=== PATIENT | female | born 1985 | race Caucasian/White ===

== ENCOUNTER 2017-01-07 00:29 | Inpatient (IN) | payer BC ==
[~2017-01-07] VITALS: Ht 172.7 cm; Wt 87.1 kg
[~2017-01-07 00:29] MED LIST: CALC-5 PO; VITACAP26 PO
[2017-01-07] MEDS ORDERED: LACTATED RINGER'S 1000ML 1,000 ML IV PRN (01:01)
--- NOTE | 2017-01-07 01:25 | Progress Note ---
Progress Note Date of Service Jan 07, 2017. Progress Note Admit Note 31 F P0000 at 40.3 weeks admitted in active labor. GBS is negative. Cervix 8/ 100/-2/vertex. Will admit in active labor.
[2017-01-07 01:49] VITALS: Ht 172.7 cm; Wt 87.1 kg
[2017-01-07 02:12] LABS: HEMATOCRIT 33.3 % (37-47); MEAN CELL VOLUME 95.4 fL (80-100); MEAN CORPUSCULAR HEMOGLOBIN 33.8 pg (25-34); MEAN CORPUSCULAR HGB CONC 35.4 g/dl (32-36); MEAN PLATELET VOLUME 12.9 fL (7.4-10.4); PLATELET COUNT 112 K/uL (130-400); RED BLOOD COUNT 3.49 M/uL (4.2-5.4); WHITE BLOOD COUNT 13.96 K/uL (4.8-10.8)
[2017-01-07 02:14] LABS: PLT ESTIMATE NORMAL
[2017-01-07] MEDS ORDERED: CHOL100010 (02:24)
[2017-01-07] MEDS ORDERED: BUPIVACAINE 0.25% 30 ML VIAL ONE (03:21)
[2017-01-07] MEDS ORDERED: EpHEDrine SULFATE INJ 50 MG/ML AMP ONE (03:21)
[2017-01-07] MEDS ORDERED: FENTANYL CITRATE INJ 50 MCG/1 ML 2 ML VIAL ONE (03:22)
[2017-01-07] MEDS ORDERED: FENTANYL 2MCG/ML ROPIV 1.25MG/ML 100ML BAG EPI ONE (03:22)
[2017-01-07] MEDS: LACTATED RINGER'S 1000ML 1,000 ML IV SCH ×2 (03:52→10:19)
[2017-01-07] MEDS ORDERED: LACTATED RINGER'S 1000ML 500 ML IV PRN ×2 (04:09→06:02)
[2017-01-07] MEDS ORDERED: NALOXONE HCL INJ 1 MG in SODIUM CHLORIDE 0.9% 1000ML 1,000 ML IV PRN (04:09)
[2017-01-07] MEDS ORDERED: FENTANYL 2MCG/ML ROPIV 1.25MG/ML 100ML BAG EPI PRN (04:15)
[2017-01-07] MEDS ORDERED: NALOXONE HCL INJ 0.4 MG/1 ML VIAL/CARP IV PRN (04:15)
[2017-01-07] MEDS ORDERED: NALBUPHINE HCL INJ 10 MG/ML AMP IV PRN (04:15)
[2017-01-07] MEDS ORDERED: EpHEDrine SULFATE INJ 50 MG/ML AMP IV PRN (04:15)
[2017-01-07] MEDS ORDERED: ONDANSETRON INJ 2 MG/ML 2 ML VIAL IV PRN (04:15)
[2017-01-07] MEDS ORDERED: DiphenhydrAMINE HCL 50 MG/ML VIAL IV PRN (04:15)
[2017-01-07] MEDS ORDERED: OXYTOCIN 30 UNITS/500ML NSS IV PRN ×2 (06:15→12:30)
[2017-01-07] MEDS ORDERED: ACETAMINOPHEN/CODEINE 300/30MG TAB PO PRN ×2 (12:30)
[2017-01-07] MEDS ORDERED: ACETAMINOPHEN 325 MG TAB PO PRN (12:30)
[2017-01-07] MEDS ORDERED: LANOLIN OINT EXT PRN ×2 (12:30)
[2017-01-07] MEDS ORDERED: BENZOCAINE 20% AER SPR 82.5 GM CAN EXT PRN (12:30)
[2017-01-07] MEDS ORDERED: HYDROCORTISONE ACETATE 25 MG SUPP PR PRN (12:30)
[2017-01-07] MEDS ORDERED: SUPERCREAM 0.870 % 15GM JAR EXT PRN (12:30)
[2017-01-07] MEDS ORDERED: OXYCODONE/ACETAMINOPHEN 5-325 TAB PO PRN (12:30)
--- NOTE | 2017-01-07 12:39 | Progress Note ---
Progress Note Date of Service Jan 07, 2017. Progress Note Delivery note Patient delivered a live female right compound presentation. was delivered and was thick meconium which was known prior to delivery. 's cord was clamped and cut and infant delivered to the waiting pediatric team. Placenta was spontaneously delivered. Inspection of the placenta showed meconium -stained placenta. Placenta sent to pathology for analysis Infant's weight is pending was 5/8. Pediatric team was present at delivery. Inspection at the perineum showed a right sulcus tear as well as a midline laceration which was repaired with 2-0 Vicryl in layers. Inspection of the repair showed good hemostasis. Rectal exam post repair showed good sphincter tone. No sutures were palpated in the rectum. Estimated blood loss is 500 mL All instruments are removed from the vagina and accounted for 2 including sponges needles and retractors. Baby and mother are doing well and stable to recovery.
--- NOTE | 2017-01-07 13:48 | Anesthesia Procedure Note ---
Anesthesia Epidural Removal Nt Date & Time Jan 07, 2017 at 13:47 Vital Signs Pain Intensity: 0.0 Notes Mental Status: alert / awake / arousable, participated in evaluation Nausea / Vomiting: adequately controlled Pain: adequately controlled Airway Patency, RR, SpO2: stable & adequate BP & HR: stable & adequate Hydration State: stable & adequate Neuraxial Anesthesia: was administered Anesthetic Complications: no major complications apparent, pt satisfied with anesthetic care Epidural: removed without complications, with tip intact
[2017-01-07 15:15] VITALS: BP 114/70; PULSE 68; TEMP 36.8
[2017-01-07] MEDS: IBUPROFEN 600 MG TAB PO PRN ×2 (16:55→22:11)
[2017-01-07] MEDS: DOCUSATE SODIUM 100 MG CAP PO SCH (20:00)
[2017-01-07 20:15] VITALS: BP 114/73; PULSE 82; TEMP 36.9
[2017-01-08 00:15] VITALS: BP 107/71; PULSE 76; TEMP 36.6
[2017-01-08 04:50] VITALS: BP 102/73; PULSE 79; TEMP 36.5
--- NOTE | 2017-01-08 07:33 | OB/GYN Progress Note ---
[employer] Progress Note Date of Service: Jan 08, 2017. Patient is seen and examined. She feels well, no complaints. Ambulating without dizziness Voiding without difficulty Tolerating regular diet with out N&V Bleeding is minimal No fever/ chills/ CP/ SOB/ N&V/ Leg pain Breast feeding without problems Date Time Temp Pulse Resp B/P (MAP) Pulse Ox O2 Delivery O2 Flow Rate FiO2 01/08/17 04:50 36.5 79 16 102/73 01/08/17 00:15 36.6 76 18 107/71 01/08/17 00:15 Room Air 01/07/17 20:15 Room Air 01/07/17 20:15 36.9 82 16 114/73 01/07/17 16:03 Room Air 01/07/17 15:15 36.8 68 16 114/70 PE: General: Alert, orientedx3, NAD Abd: soft, NT, fundus firm, below Umbilicus Perineum intact, Lochia rubra minimal Ext; NT, no edema AP: 31 yo s/p , ppd# 1 VSS Afebrile doing well Continue routine care All questions were answered D/C home tomorrow
[2017-01-08 07:42] LABS: HEMATOCRIT 31.5 % (37-47)
[2017-01-08] MEDS: DOCUSATE SODIUM 100 MG CAP PO SCH ×2 (07:53→19:36)
[2017-01-08] MEDS: FERROUS SULFATE 325 MG TAB PO SCH (07:53)
[2017-01-08] MEDS: PRENATAL VITAMIN TAB PO SCH (07:53)
[2017-01-08] MEDS: IBUPROFEN 600 MG TAB PO PRN ×3 (07:54→19:35)
[2017-01-08 08:00] VITALS: BP 103/69; PULSE 79; TEMP 36.3
[2017-01-08 12:00] VITALS: BP 106/76; PULSE 69; TEMP 36.3
[2017-01-08 16:20] VITALS: BP 117/79; PULSE 76; TEMP 36.8
[2017-01-08] MEDS ORDERED: BISACODYL 5 MG TABEC PO SCH (20:00)
[2017-01-08 23:30] VITALS: BP 117/80; PULSE 73; TEMP 36.6
[2017-01-09] MEDS ORDERED: BISACODYL 10 MG SUPP PR PRN (07:00)
[2017-01-09 07:21] LABS: HEMATOCRIT 31.1 % (37-47); MEAN CELL VOLUME 97.5 fL (80-100); MEAN CORPUSCULAR HEMOGLOBIN 32.3 pg (25-34); MEAN CORPUSCULAR HGB CONC 33.1 g/dl (32-36); MEAN PLATELET VOLUME 11.7 fL (7.4-10.4); PLATELET COUNT 117 K/uL (130-400); RED BLOOD COUNT 3.19 M/uL (4.2-5.4); WHITE BLOOD COUNT 7.24 K/uL (4.8-10.8)
[2017-01-09] MEDS ORDERED: MTR600X PO (08:02)
--- NOTE | 2017-01-09 08:03 | Discharge Instructions ---
Discharge Instructions Date of Service Jan 09, 2017. Admission Reason for Admission: LABOR Discharge Discharge Diagnosis / Problem: Vaginal Delivery Discharge Goals Goal(s): Routine recovery after delivery Medications Continue Dispensed Medications: supercream, dermaplast, tucks, lansinoh Activity Recommendations Activity Limitations: per Instructions/Follow-up section . Instructions / Follow-Up Instructions / Follow-Up ACTIVITY RECOMMENDATIONS: * Gradual return to full activity over the next 2-3 weeks. * No lifting - nothing heavier than baby over the next 2-3 weeks. * Do not engage in vigorous exercise, sexual activity or sports until cleared by your physician. * Do not drive or operate any motorized equipment until cleared by your physician. * You may shower/bathe daily. BREAST CARE: If you are not breast feeding: * Wear a supportive bra 24 hours a day for one to two weeks. * Avoid stimulating your breasts and nipples as much as possible during the first few weeks after delivery. * When taking a shower, have the warm water hit your back, not breasts. * When your breasts feel full, apply ice packs. Usually three to four times a day helps ease the discomfort. * Take a mild pain medication (Tylenol/Motrin) when you are uncomfortable. If breast feeding: * Use breast milk to lubricate nipples. Lansinoh cream may be used for sore nipples. You do not need to remove cream prior to breast feeding. If using a different brand of cream, check the label for directions regarding removal of cream prior to nursing. * Wear a supportive bra. * If having problems with breasts or breast feeding, call a freight traffic consultant or your health care provider. EPISIOTOMY CARE: After delivery, if you have an episiotomy (stitches), the following steps will ease discomfort and aid healing. * For the first 24 hours after delivery, place ice packs next to your episiotomy to help reduce swelling. * After the first 24 hour-period, sitz baths, either portable or in the tub, are suggested. A shower with a shower arm sprayed over the episiotomy may be comforting. * Lucille care should be done after each voiding and bowel movement. Squirt warm water from a plastic bottle over the perineum (region of the body between the anus and urinary opening) and pat dry. * Use Dermoplast to ease discomfort. Shake container. [place] directly over the episiotomy. * Place a Tucks on a clean sanitary pad next to your episiotomy. OVER THE COUNTER MEDICATION: * For discomfort or pain, you may use Acetaminophen (Tylenol), Ibuprofen (Advil ), or Naproxen (Aleve) following the package directions. * For constipation you may use Colace following the package directions. SPECIAL CARE INSTRUCTIONS: When you are discharged from the hospital, it is important for you to follow the instructions listed below: * During the first week at home, you should be able to care for yourself and your baby. In addition, the usual light household activities are encouraged. * Limit your activities to the way you feel. Do not try to clean the house or move furniture. Be sensible. * If you actively engage in sports and have done so up until the time of your delivery, you may resume these activities as soon as you feel able. This may take up to one month or even longer. Use good judgment. * Continue to take your vitamins for at least six weeks after the of your baby. * Your diet need not be limited unless you were on a special diet before your delivery. Breast-feeding mothers need around 2500 calories per day and at least 64-80 ounces of fluid per day (8 to 10 glasses). * You should eat foods from the four major food groups. Crash diets or fad diets are to be avoided. Eating lean meats, fresh fruits and vegetables, low-fat dairy products, high fiber foods and a regular exercise program, will help you get back to your pre- weight without putting your health at risk. * Constipation is sometimes a problem after delivery. Take a mild laxative as needed. If breast feeding, Milk of Magnesia is acceptable to use. You may use a suppository or Fleets enema if no episiotomy. * A daily shower or tub bath is suggested. Be sure to thoroughly and gently dry the perineum. * A bloody vaginal discharge will usually continue until around four weeks post . A small amount of bleeding may continue for as long as six weeks. Vaginal discharge changes from the bright red bleeding after delivery to pink then brownish and finally yellowish-pink before becoming white and disappearing. * Bleeding may increase with activity. Your first period may come in 4-8 weeks. If you are breast feeding, your period may be delayed even longer. * Haystack (sex) can begin whenever both you and your partner feel comfortable and do not have any form of genital infection. It is recommended that you wait until after your return appointment and discuss with your physician. If you have questions, please talk to your health care practitioner. A condom should be used to prevent infection and . * Foreplay, gentle intercourse and lubrication is very important the first several times to prevent pain. A water-based lubricant such as K-Y jelly or Astroglide may be used. * Tampons may be used six weeks after delivery. * Douching should be avoided for 6 weeks after delivery. * If you have RH negative blood and your baby is RH positive, you will receive RHOGAM by injection prior to discharge. The nurse will give you a card to keep with you that has the date and place that you received RHOGAM after delivery. * During your care, you had a Rubella screen done to check for the presence of rubella antibodies in your blood. If your test was negative, you will receive a Rubella vaccine prior to discharge. This vaccine may cause a fever, soreness at the injection site and flu-like symptoms. If these symptoms persist, notify your health care practitioner. is not advised for three months after a Rubella vaccine. There is a higher chance of having a baby with defects if conceived within three months of getting the vaccine. * If you were discharged 24 hours from delivery or before 48 hours: Visiting nurses will come to your home 48 hours after discharge to assess you and your baby. The visiting nurse will meet with you while you are in the hospital to arrange a time and get directions to your home. * Verbalizes understanding of car seat law as reviewed with patient nursing. * Car Seat hand-out given and reviewed with patient by nursing. * Shaken baby information reviewed with patient by nursing. Call you doctor if: * Heavy bleeding (saturating several pads an hour) or passing clots the size of your fist. * A fever >101 degrees F (38.3 degrees C) on two occasions four hours apart and/or chills. * Unusual pain in the pelvic or vaginal areas. * "Baby Blues" lasting longer than two weeks. If you have any questions or concerns, call your health care practitioner at . FOLLOW-UP VISIT: * Please call the office at to schedule a 6 week examination. It is important you keep this appointment. * It is important for you to make arrangements for either yearly or twice yearly check-ups thereafter. Current Hospital Diet Patient's current hospital diet: Regular OB Diet Discharge Diet Recommended Diet: Regular OB Diet Pending Studies Studies pending at discharge: no Medical Emergencies . Who to Call and When: Medical Emergencies: If at any time you feel your situation is an emergency, please call 911 immediately. . Non-Emergent Contact Non-Emergency issues call your: Primary Care Provider, Guest Room Inspector . . "Provider Documentation" section prepared by Shashank Major. . VTE Core Measure Inpt VTE Proph given/why not?: Treatment not indicated
--- NOTE | 2017-01-09 08:05 | OB/GYN Progress Note ---
[employer] Progress Note Date of Service Jan 09, 2017. Subjective conversation w/ patient, physical exam Ambulation: ambulating normally Voiding: no voiding problems Passing Gas: Yes Diet Tolerance: Regular Diet Lochia: Moderate Feeding Type: Breast Feeding Pain: 4/10 Notes: Doing well. Pain well controlled. Lochia decreasing. Tolerating regular diet. Ambulating without difficulty. Would like to go home today. Objective Vital Signs Date Time Temp Pulse Resp B/P (MAP) Pulse Ox O2 Delivery O2 Flow Rate FiO2 01/08/17 23:30 36.6 73 18 117/80 (92) Room Air 01/08/17 23:30 Room Air 01/08/17 16:20 Room Air 01/08/17 16:20 36.8 76 18 117/79 (92) Room Air 01/08/17 12:00 36.3 69 18 106/76 (86) Room Air Physical Exam General Appearance: WELL-APPEARING Respiratory/Chest: chest non-tender, lungs clear Cardiovascular: regular rate, rhythm Abdomen: normal bowel sounds, soft Fundus: Firm Extremities: normal range of motion, non-tender, no calf tenderness Laboratory Results Last 24 Hours Test 01/09/17 07:00 White Blood Count 7.24 K/uL Red Blood Count 3.19 M/uL Hemoglobin 10.3 g/dL Hematocrit 31.1 % Mean Corpuscular Volume 97.5 fL Mean Corpuscular Hemoglobin 32.3 pg Mean Corpuscular Hemoglobin Concent 33.1 g/dl RDW Standard Deviation 48.9 fL RDW Coefficient of Variation 13.7 % Platelet Count 117 K/uL Mean Platelet Volume 11.7 fL Assessment and Plan Post- Day Number: 2 Continue Routine Care: -D/C home today -F/U in 6 weeks
[2017-01-09] MEDS: DOCUSATE SODIUM 100 MG CAP PO SCH (08:22)
[2017-01-09] MEDS: FERROUS SULFATE 325 MG TAB PO SCH (08:22)
[2017-01-09] MEDS: PRENATAL VITAMIN TAB PO SCH (08:22)
[2017-01-09 08:30] VITALS: BP 116/78; PULSE 78; TEMP 36.8
[2017-01-09] MEDS: IBUPROFEN 600 MG TAB PO PRN (09:11)
[2017-01-09 11:24] VITALS: BP_DIAS 78; PULSE 78; TEMP 36.8
== END 2017-01-09 13:50 | disposition home or self-care (01) | DRG 775 ==
LOC: C.OPB 00:29 → C.LD 00:30 → C.OPB 01:02 → C.OBG 15:42
PROVIDERS: ADMIT Obstetrics & Gynecology; ATTEND Obstetrics & Gynecology
PROC: 0HQ9XZZ Repair Perineum Skin, External Approach (ICD-10-PCS; principal; 2017-01-07)
PROC: 0UQGXZZ Repair Vagina, External Approach (ICD-10-PCS; principal; 2017-01-07)
PROC: 10E0XZZ Delivery of Products of Conception, External Approach (ICD-10-PCS; principal; 2017-01-07)
DX: O48.0 Post-term pregnancy (principal); O32.6XX0 Maternal care for compound presentation, not applicable or unspecified; O77.0 Labor and delivery complicated by meconium in amniotic fluid; O70.0 First degree perineal laceration during delivery; Z3A.40 40 weeks gestation of pregnancy; Z37.0 Single live birth